=== PATIENT | male | born 1950 | race Caucasian/White ===

== ENCOUNTER 2017-11-13 06:24 | Day surgery (SDC) | payer OTHER ==
[2017-11-13] MEDS ORDERED: SODIUM HYALURONATE 14 MG/ML SYG ×2 (06:42→10:34)
[2017-11-13] MEDS ORDERED: EPINEPHrine 1 MG INJ (06:47)
[2017-11-13] MEDS ORDERED: LIDOCAINE 2% (SDV) 5 ML INJ (07:00)
[2017-11-13] MEDS ORDERED: LIDOCAINE 1% (MPF) 10 ML INJ (07:09)
[2017-11-13] MEDS ORDERED: SOD CHLORIDE 0.9% 1,000 ML IV (07:30)
[2017-11-13] MEDS: MOXIFLOXACIN 0.5% 3 ML OPH OPER (07:32)
[2017-11-13] MEDS: PHENYLephrine 2.5% 15 ML OPH OPER (07:33)
[2017-11-13] MEDS: TROPICAMIDE 1% 3 ML OPH OPER (07:33)
[2017-11-13] MEDS: PREDNISOLONE ACET 1% 5 ML OPH OPER (07:33)
[2017-11-13] MEDS: PROPARACAINE 0.5% 15 ML OPH OPER (07:34)
[2017-11-13] MEDS: SODIUM HYALURONATE 14 MG/ML SYG IO ×3 (08:15→09:00)
[2017-11-13] MEDS: LIDOCAINE 2%/EPI MPF (SDV) 20 ML VIAL INJ (08:15)
[2017-11-13] MEDS: TETRACAINE 0.5% 4 ML OPH LEFT EYE (08:15)
[2017-11-13] MEDS ORDERED: PROPOFOL 20 ML (08:30)
[2017-11-13] MEDS ORDERED: MIDAZOLAM 1 MG/ML 2 ML INJ (08:30)
[2017-11-13] MEDS: BUPIVACAINE 0.75% (MPF) 10 ML INJ INJ (08:32)
[2017-11-13] MEDS: CARBACHOL 0.01% 1.5 ML OPH INJ IO (09:01)
[2017-11-13] MEDS: TOBRAMYCIN/DEXAMETH 3.5 GM OPH OINT LEFT EYE (09:08)
[2017-11-13] MEDS ORDERED: CARBACHOL 0.01% 1.5 ML OPH INJ (09:12)
[2017-11-13] MEDS ORDERED: FENTAnyl 50 MCG/ML VIAL IV (09:30)
[2017-11-13] MEDS ORDERED: LABETALOL HCL 20MG INJ IV (09:30)
[2017-11-13] MEDS ORDERED: ONDANSETRON 4 MG INJ IV (09:30)
== END 2017-11-13 10:44 | disposition home or self-care (01) ==
LOC: SDS 06:24
DX: H25.89 Other age-related cataract (principal); E11.9 Type 2 diabetes mellitus without complications; E78.5 Hyperlipidemia, unspecified; I10 Essential (primary) hypertension
CPT/HCPCS: 66984; 82962

== ENCOUNTER 2018-02-26 05:49 | Day surgery (SDC) | payer OTHER ==
[2018-02-26] MEDS: MOXIFLOXACIN 0.5% 3 ML OPH OPER (06:19)
[2018-02-26] MEDS: SOD CHLORIDE 0.9% 1,000 ML IV (06:20)
[2018-02-26] MEDS: CYCLOPENTOLATE/PHENYLEPH 2 ML OPH OPER (06:20)
[2018-02-26] MEDS: DICLOFENAC 0.1% 2.5 ML OPH OPER (06:20)
[2018-02-26] MEDS: TROPICAMIDE 1% 3 ML OPH OPER (06:21)
[2018-02-26] MEDS: TROPICAMIDE 1% 15 ML OPH OPER (06:37)
[2018-02-26] MEDS: CARBACHOL 0.01% 1.5 ML OPH INJ (06:59)
[2018-02-26] MEDS ORDERED: LIDOCAINE 4% (MPF) 5 ML INJ (06:59)
[2018-02-26] MEDS ORDERED: TETRACAINE 0.5% 4 ML OPH (06:59)
[2018-02-26] MEDS: CEFAZOLIN 1 GM INJ (06:59)
[2018-02-26] MEDS ORDERED: NA HYALURONATE/CHONDROITIN 0.5 ML SYG (07:00)
[2018-02-26] MEDS ORDERED: EPINEPHrine 1 MG INJ (07:00)
[2018-02-26] MEDS: DEXAMETHASONE 4 MG/ML 1 ML INJ (07:00)
[2018-02-26] MEDS ORDERED: GENTAMICIN 80 MG INJ (07:00)
[2018-02-26] MEDS ORDERED: MIDAZOLAM 1 MG/ML 2 ML INJ (07:29)
[2018-02-26] MEDS ORDERED: PROPOFOL 20 ML (07:29)
[2018-02-26] MEDS ORDERED: ONDANSETRON 4 MG INJ IV (07:30)
[2018-02-26] MEDS ORDERED: HYDROmorphONE 1 MG/5 ML IV SYRINGE IV ×2 (07:30)
== END 2018-02-26 09:46 | disposition home or self-care (01) ==
LOC: SDS 05:49
DX: H25.042 Posterior subcapsular polar age-related cataract, left eye (principal); E11.9 Type 2 diabetes mellitus without complications; Z79.84 Long term (current) use of oral hypoglycemic drugs; Z79.4 Long term (current) use of insulin; I10 Essential (primary) hypertension; Z86.73 Personal history of transient ischemic attack (TIA), and cerebral infarction without residual deficits
CPT/HCPCS: 66984; 82962; 93005